=== PATIENT | male | born 1970 | race Caucasian/White ===

== ENCOUNTER 2022-01-16 11:30 | Emergency (ER) | payer BC ==
[~2022-01-16] VITALS: Ht 188 cm; Wt 122.7 kg
[2022-01-16 11:30] VITALS: BP 160/90
[2022-01-16] MEDS ORDERED: LISI40TA4 PO (11:43)
[2022-01-16] MEDS ORDERED: METF10004 PO (11:43)
[2022-01-16] MEDS ORDERED: BUPR-71 PO (11:43)
[2022-01-16] MEDS ORDERED: LISI20TA35 PO ×2 (11:43→13:13)
[2022-01-16] MEDS ORDERED: SILD50TA2 PO (11:43)
[2022-01-16] MEDS ORDERED: LEXA1TAB2 PO ×2 (11:43→13:13)
[2022-01-16] MEDS ORDERED: METO1TAB33 PO ×2 (11:43→13:13)
== END 2022-01-16 13:23 | disposition home or self-care (01) ==
LOC: M ED 11:30
DX: Z76.0 Encounter for issue of repeat prescription (principal); I10 Essential (primary) hypertension; E11.9 Type 2 diabetes mellitus without complications; E78.5 Hyperlipidemia, unspecified; G43.909 Migraine, unspecified, not intractable, without status migrainosus; Z79.899 Other long term (current) drug therapy; Z79.84 Long term (current) use of oral hypoglycemic drugs; F17.200 Nicotine dependence, unspecified, uncomplicated

== ENCOUNTER 2022-02-19 15:52 | Emergency (ER) | payer BC ==
[~2022-02-19] VITALS: Ht 188 cm; Wt 126.1 kg
[~2022-02-19 15:52] MED LIST: BUPR-71 PO; LEXA1TAB2 PO; LISI20TA35 PO; LISI40TA4 PO; METF10004 PO; METO1TAB33 PO; SILD50TA2 PO
[2022-02-19] MEDS ORDERED: LISI20TA35 PO (17:31)
[2022-02-19] MEDS ORDERED: METF-877 PO (17:31)
[2022-02-19] MEDS ORDERED: TOPR100T PO (17:31)
[2022-02-19 17:41] VITALS: BP 141/85
== END 2022-02-19 17:43 | disposition home or self-care (01) ==
LOC: M ED 15:52
DX: Z76.0 Encounter for issue of repeat prescription (principal); E11.9 Type 2 diabetes mellitus without complications; E78.5 Hyperlipidemia, unspecified; G47.33 Obstructive sleep apnea (adult) (pediatric); I10 Essential (primary) hypertension; Z79.84 Long term (current) use of oral hypoglycemic drugs; Z79.899 Other long term (current) drug therapy

== ENCOUNTER 2022-03-04 14:28 | Emergency (ER) | payer MEDICAID ==
[~2022-03-04] VITALS: Ht 188 cm; Wt 122.2 kg
[~2022-03-04 14:28] MED LIST changes: +ALBU6.7H6 INH; +LEVO750T14 PO; +METF-877 PO; +TOPR100T PO
[2022-03-04 15:31] LABS: RSV AMPLIFICATION NEGATIVE (NEGATIVE)
[2022-03-04] MEDS ORDERED: methylPREDNISolone 125MG 2ML VIAL IV ONE (16:35)
[2022-03-04] MEDS: IPRATROPIUM 0.5MG/ALBUTEROL 2.5MG INH SOL UD 3ML (DUONEB) NEB PRN ×3 (17:02→18:11)
[2022-03-04 17:12] LABS: ABG HCO3 27.9 MEQ/L (22.0-26.0); ABG O2 SATURATION 91.7 % (95.0-99.0); ABG PARTIAL PRESSURE CO2 47.8 mmHg (35.0-45.0); ABG PARTIAL PRESSURE O2 61.4 mmHg (75.0-100.0); ABG TOTAL CO2 29.4 MEQ/L (22.0-29.0); ABG pH (ARTERIAL) 7.384 UNITS (7.350-7.450)
[2022-03-04 17:13] LABS: BASO # 0.1 10^3/uL (0.0-0.2); BASO % 1.2 % (0.0-1.0); EOS # 0.6 10^3/uL (0.0-0.5); EOS % 6.6 % (0.0-3.0); HEMATOCRIT 47.5 % (42.0-52.0); HEMOGLOBIN 16.5 g/dl (13.5-17.5); LYMPH # 1.7 10^3/uL (1.5-5.0); MEAN CORPUSCULAR HEMOGLOBIN 32.9 pg (27.0-33.0); MEAN CORPUSCULAR HGB CONC 34.7 g/dl (32.0-36.5); MEAN CORPUSCULAR VOLUME 94.8 fl (80.0-96.0); MONO % 10.9 % (2.0-8.0); NEUTROPHILS # 5.9 10^3/uL (1.5-8.5); NEUTROPHILS % 62.9 % (36.0-66.0); PLATELET COUNT, AUTOMATED 239 10^3/uL (150-450); RED BLOOD COUNT 5.01 10^6/uL (4.30-6.10); WHITE BLOOD COUNT 9.4 10^3/uL (4.0-10.0)
[2022-03-04 17:37] LABS: ALBUMIN 4.1 GM/DL (3.2-5.2); BILIRUBIN,DIRECT 0.2 MG/DL (0.0-0.2); BILIRUBIN,TOTAL 0.5 MG/DL (0.2-1.0); CALCIUM LEVEL 9.3 MG/DL (8.5-10.1); CREATININE FOR GFR 1.37 MG/DL (0.70-1.30); GLOMERULAR FILTRATION RATE 58.1 (>56); POTASSIUM SERUM 4.8 MEQ/L (3.5-5.1); THYROID STIMULATING HORMONE 1.77 uIU/ML (0.358-3.740); TOTAL PROTEIN 7.9 GM/DL (6.4-8.2)
[2022-03-04] MEDS ORDERED: ISOVUE-370 76% 100ML VIAL As Ordered ONE (17:46)
[2022-03-04 18:16] VITALS: O2SAT 93
[2022-03-04] MEDS ORDERED: PRED20TA PO (19:00)
[2022-03-04 19:43] VITALS: BP 155/70
== END 2022-03-04 19:50 | disposition left against medical advice (07) ==
LOC: M ED 14:28
DX: R09.02 Hypoxemia (principal); Z53.9 Procedure and treatment not carried out, unspecified reason; E11.9 Type 2 diabetes mellitus without complications; I10 Essential (primary) hypertension; J44.9 Chronic obstructive pulmonary disease, unspecified; F41.9 Anxiety disorder, unspecified; F32.9 Major depressive disorder, single episode, unspecified; F17.200 Nicotine dependence, unspecified, uncomplicated; Z87.891 Personal history of nicotine dependence; Z79.84 Long term (current) use of oral hypoglycemic drugs; Z79.899 Other long term (current) drug therapy
CPT/HCPCS: 36600; 71046; 71275; 80048; 80076; 82803; 83880; 84443; 85025; 87631; 93005; 93041; 94640; 94760; 96374; 99285; J2930; Q9967

== ENCOUNTER → 2022-04-29 | Outpatient (REF) | payer MEDICAID, BC ==
[~2022-04-29] MED LIST changes: +PRED20TA PO
[2022-04-29 21:08] LABS: MEAN CORPUSCULAR HEMOGLOBIN 31.7 pg (27.0-33.0); MEAN CORPUSCULAR HGB CONC 33.3 g/dl (32.0-36.5); MEAN CORPUSCULAR VOLUME 95.1 fl (80.0-96.0); PLATELET COUNT, AUTOMATED 223 10^3/uL (150-450); RED BLOOD COUNT 4.73 10^6/uL (4.30-6.10); WHITE BLOOD COUNT 7.8 10^3/uL (4.0-10.0)
[2022-04-29 21:20] LABS: HEMOGLOBIN A1c 5.6 % (4.0-6.0)
[2022-04-29 21:34] LABS: ALBUMIN 4.2 G/DL (3.2-5.2); ALKALINE PHOSPHATASE 87 U/L (46-116); ALT/SGPT 88 U/L (7.0-40); AST/SGOT 57 U/L (<34); BILIRUBIN,TOTAL 0.5 MG/DL (0.3-1.2); BLOOD UREA NITROGEN 16 MG/DL (9-23); CALCIUM LEVEL 9.9 MG/DL (8.5-10.1); CARBON DIOXIDE LEVEL 30 MMOL/L (20-31); CHLORIDE LEVEL 101 MMOL/L (98-107); CREATININE FOR GFR 1.17 MG/DL (0.70-1.30); CREATININE, URINE 80.7 MG/DL; GLOMERULAR FILTRATION RATE > 60.0 (>56); GLUCOSE, FASTING 69 MG/DL (60-100); MAGNESIUM LEVEL 1.9 MG/DL (1.8-2.4); POTASSIUM SERUM 4.3 MMOL/L (3.5-5.1); SODIUM LEVEL 141 MMOL/L (136-145); TOTAL PROTEIN 7.3 G/DL (5.7-8.2)
[2022-04-29 21:35] LABS: MALB URINE SIEMENS < 5.0 MG/DL; MAU/CREAT RATIO 6.1 MCG/MG (0.0-30.0)
[2022-04-29 21:38] LABS: FREE T4 1.22 NG/DL (0.89-1.76)
[2022-04-29 21:39] LABS: THYROID STIMULATING HORMONE 1.752 uIU/ML (0.55-4.78)
[2022-04-29 21:40] LABS: INR 0.9; PROTHROMBIN TIME 12.4 SECONDS (12.5-14.5)
[2022-04-29 21:41] LABS: PARTIAL THROMBOPLASTIN TIME 28.1 SECONDS (24.8-34.2)
== END ==
LOC: M LAB REF 20:54
PROVIDERS: ATTEND Family Medicine
DX: Z12.11 Encounter for screening for malignant neoplasm of colon (principal); E11.9 Type 2 diabetes mellitus without complications; I10 Essential (primary) hypertension; R00.2 Palpitations; F10.90 Alcohol use, unspecified, uncomplicated

== ENCOUNTER → 2022-04-29 | Outpatient (REF) | payer BC | LOC: M SFHCPLAZ 23:21 | PROVIDERS: ATTEND Family Medicine | DX: R00.2 Palpitations (principal); Z12.11 Encounter for screening for malignant neoplasm of colon; I10 Essential (primary) hypertension; E11.9 Type 2 diabetes mellitus without complications ==

== ENCOUNTER → 2022-10-06 | Outpatient (CLI) | payer BC, MEDICAID ==
[2022-10-06 16:28] LABS: HEMOGLOBIN A1c 5.5 % (4.0-6.0)
[2022-10-06 16:39] LABS: ALBUMIN 4.1 G/DL (3.2-5.2); BILIRUBIN,TOTAL 0.9 MG/DL (0.3-1.2); CALCIUM LEVEL 8.9 MG/DL (8.5-10.1); CHOLESTEROL RISK RATIO 2.75 (<5); CREATININE FOR GFR 1.35 MG/DL (0.70-1.30); GLOMERULAR FILTRATION RATE 58.9 (>56); HDL CHOLESTEROL 51.1 MG/DL (>40); LDL CHOLESTEROL 60.9 MG/DL (<100); NON-HDL-C 89.9 MG/DL; POTASSIUM SERUM 4.6 MMOL/L (3.5-5.1); TOTAL PROTEIN 7.5 G/DL (5.7-8.2)
== END ==
LOC: M PLALAB 13:58
PROVIDERS: ATTEND Family Medicine
DX: E11.9 Type 2 diabetes mellitus without complications (principal); Z12.11 Encounter for screening for malignant neoplasm of colon; N18.2 Chronic kidney disease, stage 2 (mild)

== ENCOUNTER → 2023-07-18 | Outpatient (CLI) | payer MEDICAID, OTHER ==
[2023-07-18 17:33] LABS: HEMOGLOBIN A1c 5.5 % (4.0-6.0)
[2023-07-18 17:34] LABS: ALBUMIN 3.8 G/DL (3.2-5.2); BILIRUBIN,TOTAL 0.4 MG/DL (0.3-1.2); CALCIUM LEVEL 9.4 MG/DL (8.5-10.1); CHOLESTEROL RISK RATIO 3.15 (<5); CREATININE FOR GFR 1.33 MG/DL (0.70-1.30); GLOMERULAR FILTRATION RATE 59.6 (>56); HDL CHOLESTEROL 35.2 MG/DL (>40); LDL CHOLESTEROL 45.6 MG/DL (<100); NON-HDL-C 75.8 MG/DL; POTASSIUM SERUM 4.5 MMOL/L (3.5-5.1); TOTAL PROTEIN 7.4 G/DL (5.7-8.2)
== END ==
LOC: M PLALAB 15:12
PROVIDERS: ATTEND Family Medicine
DX: E11.9 Type 2 diabetes mellitus without complications (principal); N18.2 Chronic kidney disease, stage 2 (mild)

== ENCOUNTER → 2023-07-19 | Outpatient (REF) | payer BC, MEDICAID, OTHER | LOC: M SFHCPLAZ 17:17 | PROVIDERS: ATTEND Family Medicine | DX: E11.9 Type 2 diabetes mellitus without complications (principal); N18.2 Chronic kidney disease, stage 2 (mild); Z53.9 Procedure and treatment not carried out, unspecified reason ==

== ENCOUNTER → 2024-01-17 | Outpatient (CLI) | payer OTHER ==
[2024-01-17 17:46] LABS: CREATININE, URINE 69.9 MG/DL; MAU/CREAT RATIO 44.3 MCG/MG (0.0-30.0)
[2024-01-17 17:59] LABS: HEMOGLOBIN A1c 5.3 % (4.0-6.0)
== END ==
LOC: M PLALAB 16:39
PROVIDERS: ATTEND Family Medicine
DX: E11.9 Type 2 diabetes mellitus without complications (principal)

== ENCOUNTER 2024-06-20 13:58 | Emergency (ER) | payer OTHER ==
[~2024-06-20] VITALS: Ht 188 cm; Wt 119.0 kg
[~2024-06-20 13:58] MED LIST changes: -LEVO750T14 PO; +LEVO75TAB PO
[2024-06-20 17:01] VITALS: BP 107/56; TEMP 98.3; O2SAT 94
== END 2024-06-20 17:50 | disposition left against medical advice (07) ==
LOC: M ED 13:58
DX: Z53.21 Procedure and treatment not carried out due to patient leaving prior to being seen by health care provider (principal)

== ENCOUNTER → 2024-07-04 | Outpatient (CLI) | payer MEDICAID, OTHER ==
[2024-07-04 17:43] LABS: ALBUMIN 3.9 G/DL (3.2-5.2); BILIRUBIN,TOTAL 0.6 MG/DL (0.3-1.2); CALCIUM LEVEL 9.6 MG/DL (8.5-10.1); CHOLESTEROL RISK RATIO 2.61 (<5); CREATININE FOR GFR 1.74 MG/DL (0.70-1.30); GLOMERULAR FILTRATION RATE 43.7 (>56); HDL CHOLESTEROL 54.6 MG/DL (>40); MAGNESIUM LEVEL 1.8 MG/DL (1.8-2.4); NON-HDL-C 88.4 MG/DL; POTASSIUM SERUM 5.7 MMOL/L (3.5-5.1); TOTAL PROTEIN 7.9 G/DL (5.7-8.2)
[2024-07-04 18:00] LABS: CREATININE, URINE 91.4 MG/DL; MAU/CREAT RATIO 4.3 MCG/MG (0.0-30.0)
[2024-07-04 18:07] LABS: HEMOGLOBIN A1c 5.6 % (4.0-6.0)
== END ==
LOC: M PLALAB 14:15
PROVIDERS: ATTEND Student in an Organized Health Care Education/Training Program
DX: Z09 Encounter for follow-up examination after completed treatment for conditions other than malignant neoplasm (principal)

== ENCOUNTER → 2024-07-08 | Outpatient (CLI) | payer OTHER ==
[2024-07-08 18:33] LABS: CALCIUM LEVEL 9.4 MG/DL (8.5-10.1); CREATININE FOR GFR 1.93 MG/DL (0.70-1.30); GLOMERULAR FILTRATION RATE 38.8 (>56); PHOSPHORUS LEVEL 3.7 MG/DL (2.5-4.9); POTASSIUM SERUM 4.8 MMOL/L (3.5-5.1)
== END ==
LOC: M PLALAB 14:42
PROVIDERS: ATTEND Student in an Organized Health Care Education/Training Program
DX: E87.5 Hyperkalemia (principal)

== ENCOUNTER → 2024-08-01 | Outpatient (CLI) | payer OTHER | LOC: M RAD 16:58 | PROVIDERS: ATTEND Family Medicine | DX: Z12.2 Encounter for screening for malignant neoplasm of respiratory organs (principal); F17.210 Nicotine dependence, cigarettes, uncomplicated; R91.8 Other nonspecific abnormal finding of lung field ==

== ENCOUNTER → 2024-11-28 | Outpatient (CLI) | payer OTHER ==
[~2024-11-28] MED LIST changes: +ATRO0.063 INH; +BUPR-766 PO; +ELIQ5TAB PO; +HYDR-3363 PO; +IPRA0.00 INH; +LISI40TA10 PO; -LISI40TA4 PO; +METO1TAB7 PO; +SILD100T PO
== END ==
LOC: M PLAIMG 12:24
PROVIDERS: ATTEND Student in an Organized Health Care Education/Training Program
DX: I48.91 Unspecified atrial fibrillation (principal)

== ENCOUNTER → 2025-01-04 | Outpatient (CLI) | payer OTHER | LOC: M SLEEP 20:00 | PROVIDERS: ATTEND Physician Assistant | DX: G47.33 Obstructive sleep apnea (adult) (pediatric) (principal) ==

== ENCOUNTER 2025-02-15 11:46 | Emergency (ER) | payer MEDICAID, OTHER ==
[~2025-02-15] VITALS: Ht 188 cm; Wt 126.3 kg
[2025-02-15] MEDS: AMPICILLIN SOD/SULBACTAM SOD 3 GM in DEXTROSE 5% (D5W) MINI-BAG PLU 100 ML IV ONE (12:47)
[2025-02-15 13:07] LABS: BASO # 0.0 10^3/uL (0.0-0.2); BASO % 0.5 % (0.0-1.0); EOS # 0.2 10^3/uL (0.0-0.5); EOS % 5.4 % (0.0-3.0); LYMPH # 1.0 10^3/uL (1.5-5.0); LYMPH % 22.5 % (24.0-44.0); MONO # 0.5 10^3/uL (0.0-0.8); MONO % 11.5 % (2.0-8.0); NEUTROPHILS # 2.5 10^3/uL (1.5-8.5); NEUTROPHILS % 59.6 % (36.0-66.0); PLATELET COUNT, AUTOMATED 135 10^3/uL (150-450)
[2025-02-15 13:18] LABS: ERYTHROCYTE SEDIMENTATION RATE 74 mm/hr (0-20)
[2025-02-15] MEDS ORDERED: ISOVUE-370 76% 100 ML VIAL As Ordered ONE (13:37)
[2025-02-15] MEDS ORDERED: AMOX875T2 PO (17:18)
[2025-02-15 17:26] VITALS: BP 140/73; TEMP 99.2; O2SAT 97
== END 2025-02-15 17:31 | disposition home or self-care (01) ==
LOC: M ED 11:46
DX: K02.9 Dental caries, unspecified (principal); I48.91 Unspecified atrial fibrillation; E11.9 Type 2 diabetes mellitus without complications; I10 Essential (primary) hypertension; F41.9 Anxiety disorder, unspecified; F32.A Depression, unspecified; Z79.51 Long term (current) use of inhaled steroids; Z79.01 Long term (current) use of anticoagulants; Z79.2 Long term (current) use of antibiotics; Z79.84 Long term (current) use of oral hypoglycemic drugs; Z79.899 Other long term (current) drug therapy
CPT/HCPCS: 70491; 80047; 85025; 85652; 86140; 96374; 99284; J0295; J1100; Q9967